=== PATIENT | female | born 1960 | race Two or more races ===

== ENCOUNTER 2019-03-23 21:13 | Emergency (ER) | payer MEDICARE, MEDICAID ==
[~2019-03-23] VITALS: Ht 157.5 cm; Wt 50.0 kg
[2019-03-23] MEDS ORDERED: SODIUM CHLORIDE 0.9% 1,000 ML IV ONE ×2 (21:26→22:30)
[2019-03-23 22:02] LABS: HEMATOCRIT. 37.8 % (36.0-48.0); HEMOGLOBIN. 12.6 g/dL (12.0-16.0); MEAN CORPUSCULAR HEMOGLOBIN 28.2 pg (28.0-32.0); MEAN CORPUSCULAR VOLUME 84.7 fL (81.0-99.0); MEAN PLATELET VOLUME 10.6 fl (7.4-10.4); PLATELET 81 x1000/uL (130-400); RED BLOOD CELL COUNT 4.46 mill/uL (4.2-5.4); RED CELL DISTRIBUTION WIDTH 15.1 % (11.6-14.6)
[2019-03-23 22:08] LABS: CHLORIDE 113 mEq/L (98-107)
[2019-03-23 22:44] LABS: PLATELET ESTIMATE DECREASED
[2019-03-23] MEDS ORDERED: LORAZEPAM 2MG/ML CPJ IV ONE (23:15)
[2019-03-24] MEDS: POTASSIUM CHLORIDE 20MEQ TABLET SR PO ONE ×2 (00:30→00:49)
[2019-03-24] MEDS ORDERED: POTASSIUM CHLORIDE 20MEQ TABLET SR PO ONE (07:30)
[2019-03-24 08:51] LABS: *AMPHETAMINES SCREEN URINE NEGATIVE (NEGATIVE); *BARBITURATES SCREEN URINE NEGATIVE (NEGATIVE); *BENZODIAZEPINES SCREEN URINE NEGATIVE (NEGATIVE); *COCAINE SCREEN URINE NEGATIVE (NEGATIVE); METHADONE URINE SCREEN NEGATIVE (NEGATIVE); OPIATES URINE SCREEN NEGATIVE (NEGATIVE); PHENCYCLIDINE URINE SCREEN NEGATIVE (NEGATIVE)
[2019-03-24 08:52] LABS: CANNABINOID URINE SCREEN NEGATIVE (NEGATIVE)
[2019-03-25 15:33] LABS: CLARITY URINE TURBID (CLEAR); COLOR URINE DARK YELLOW (YELLOW); KETONES URINE 2+ (NEGATIVE); LEUKOCYTE ESTERASE URINE 2+ (NEGATIVE); NITRITE URINE NEGATIVE (NEGATIVE); OCCULT BLOOD URINE NEGATIVE (NEGATIVE); PROTEIN URINE 1+ (NEGATIVE); SPECIFIC GRAVITY URINE 1.028 (1.005-1.030)
[2019-03-25] MEDS ORDERED: FLUCONAZOLE 100MG TABLET PO ONE (16:30)
[2019-03-25] MEDS ORDERED: LIDOCAINE HCL 1% 20ML VIAL (Pyxis) INJ INFIL ONE (16:30)
[2019-03-25] MEDS ORDERED: CEFTRIAXONE SODIUM 1 G/VIAL IM ONE (16:30)
[2019-03-25] MEDS ORDERED: DIPHENHYDRAMINE 25MG CAPSULE PO ONE (17:45)
[2019-03-26 02:51] VITALS: BP 121/78
== END 2019-03-26 02:52 ==
LOC: ER 21:13
DX: R62.7 Adult failure to thrive (principal); E86.0 Dehydration; N39.0 Urinary tract infection, site not specified; F79 Unspecified intellectual disabilities; B37.3 Candidiasis of vulva and vagina; E87.6 Hypokalemia; F17.200 Nicotine dependence, unspecified, uncomplicated; Z68.22 Body mass index [BMI] 22.0-22.9, adult; Z75.1 Person awaiting admission to adequate facility elsewhere
CPT/HCPCS: 36415; 71045; 80053; 82962; 83880; 84145; 84484; 85025; 93005; 96360; 96361; 99285; J0696; J3490; J7030; Q0163; 99284